=== PATIENT | male | born 1965 | race Caucasian/White ===

== ENCOUNTER → 2018-12-23 | Day surgery (SDC) | payer OTHER ==
[~2018-12-23] VITALS: Ht 180.3 cm; Wt 86.2 kg
[2018-12-23] VITALS (11 sets, daily range): BP systolic 110–143; BP diastolic 54–87
[~2018-12-23] MED LIST: ATORVASTATIN CA10 MG PO; FENTANYL CITRATE/PF 100MCG/2 ML INJ ONE; HEPARIN SOD (PORCINE) 1000 UNIT/ML 30ML ONE; HEPARIN SOD/SOD CHLORIDE 2,000 ML ONE; IOPAMIDOL 370 MG/ML 200 ML INFUS..BTL INJ ONE; LIDOCAINE HCL 2% LOCAL 20 ML VIAL ONE; LORAZEPAM INJ 2 MG/ML VIAL ONE; METOPROLOL SUCC25 MG PO; MIDAZOLAM HCL 2 MG/2 ML VIAL ONE; NITROGLYCERIN/D5W 200 MCG/ML 0 ML ONE; SODIUM CHLORIDE 0.9% 1000ML 1,000 ML ONE
--- NOTE | 2018-12-23 08:27 | NUR ---
345e Bedside report received from FRANCINE Miguel.Identiferx2. Alert oriented and appropriate, PERRLA, respirations even and unlabored to room air. Pulses x4 extremities equal and strong. Pedal pulses PT/DP X4 and marked. Cap fill brisk < 3 sec. Skin warm and dry integrity appears D/I IV 20g to saline lock, presents healthy w/o s/s of infiltration or complaint. Abdomen soft and supple. pt offered toileting, denies need to urinate or defecate. No personal affects with patient. Family at bedside(,mother and dad). Pt and family verbalizes understanding of POC. Currently w/o complaint of pain or need. Left Angioseal site intact to left groin. Down time till 1230 and dc home Dc papers prepared. jose/francine
--- NOTE | 2018-12-23 12:30 | NUR ---
1230 Pt meets DC criteria. left groin assessed for s/s of complication and presence of hematoma. Skin warm, dry, no discolor, and pulses present. IV removed from left hand. Distal tip appears intact. VS WNL. Pt denies pain, sob, or need at this time. Family at at bedside Review of discharge paperwork and follow up instructions. verbalized understanding. Pt to wheelchair and transported to front of hospital. Transferred to private vehicle under own strength w/o incident with DC paperwork in hand. - ds/rn
--- NOTE | 2018-12-23 23:29 | Operative Report ---
DATE OF PROCEDURE: 12/23/2018 SURGEON: Stew Pineda MD DIAGNOSES: 1. Coronary artery disease. 2. Recurrent angina pectoris and abnormal treadmill test. 3. Cardiac arrhythmia with premature atrial and ventricular contractions. 4. Hyperlipidemia. PROCEDURES: 1. Cardiac catheterization including selective coronary angiography and left ventricular angiogram. 2. Abdominal aortography. 3. Closure of left femoral artery with Angio-Seal VIP. ANESTHESIA: 1. Local anesthetic at left inguinal area. 2. Moderate sedation. OYSTER PREPARER: None. DESCRIPTION OF PROCEDURE: After usual prepping and draping, the left inguinal area was infiltrated with local lidocaine. Under modified Seldinger technique, a 6-Serbian arterial sheath was placed in the left femoral artery. Selective coronary angiography was then performed by using modified Ana Paula catheter. A 6-Serbian angled pigtail catheter was utilized for recording of hemodynamics and left ventricular angiogram in the 30-degree ZAMUDIO projection. The pigtail catheter was then withdrawn to the level of the renal arteries for abdominal aortography. After removal of the pigtail catheter, angiogram of the left groin area was performed in the left anterior oblique position. Prior to closure of the left femoral artery was Angio-Seal VIP, which resulted in excellent hemostasis and dressing was then applied to the left groin area and the patient transferred to the observation area in stable condition. There were no complications and there was no blood loss. The procedure was well tolerated. FINDINGS OF CARDIAC CATHETERIZATION: 1. The left ventricular pressure was 110 mmHg. His aortic pressure was 110/60 with a mean of 82 mmHg. The left ventricular end-diastolic pressure was 12 mmHg. 2. Selective coronary angiography showed normal left main coronary artery. The left anterior descending branch showed about a 20% focal stenosis in the mid portion with normal runoff. 3. The left circumflex system was dominant and without any stenotic areas. The right coronary artery was congenitally small and normal. The left ventricular angiogram showed normal ejection fraction of 60%. 4. The abdominal aortogram showed normal abdominal aorta with normal renal arteries. The celiac trunk and branches were normal. The superior mesenteric artery was normal as well as the patient's iliac arteries and the proximal left femoral artery and profunda branch. IMPRESSION: 1. Mild coronary artery disease involving the midportion of the left anterior descending branch. 2. Normal left ventricular angiogram and left ventricular ejection fraction. 3. Normal abdominal aortogram. RECOMMENDATIONS: The findings were discussed in detail with the patient and the patient's and the recommendation is that the patient should continue medical therapy. He can resume his exercise program, but he was advised to increase his Lipitor from 10 mg to 20 mg daily, and he will be followed closely with annual stress tests. MD EMMIE Jiménez/TONG /[id number]
== END | disposition home or self-care (01) ==
LOC: CATH LAB 06:26
PROVIDERS: ATTEND Internal Medicine Cardiovascular Disease
DX: I25.10 Atherosclerotic heart disease of native coronary artery without angina pectoris (principal); I25.118 Atherosclerotic heart disease of native coronary artery with other forms of angina pectoris; R94.39 Abnormal result of other cardiovascular function study; I49.1 Atrial premature depolarization; I49.3 Ventricular premature depolarization; E78.5 Hyperlipidemia, unspecified
CPT/HCPCS: 75625; 93458; C1760; J2001; J2060; J2250; J3010; J7030; Q9967; 99152; 99153; J1644